=== PATIENT | female | born 1970 | race Caucasian/White ===

== ENCOUNTER 2017-12-12 19:28 | Emergency (ER) | payer OTHER ==
[~2017-12-12] VITALS: Ht 165.1 cm; Wt 74.8 kg
== END 2017-12-12 21:51 | disposition home or self-care (01) ==
LOC: ER 19:28
DX: J06.9 Acute upper respiratory infection, unspecified (principal); J01.00 Acute maxillary sinusitis, unspecified; J11.1 Influenza due to unidentified influenza virus with other respiratory manifestations

== ENCOUNTER → 2018-01-21 | Emergency (ER) | payer OTHER ==
[~2018-01-21] VITALS: Ht 170.2 cm; Wt 63.5 kg
== END | disposition home or self-care (01) ==
LOC: ER 18:29
DX: J11.1 Influenza due to unidentified influenza virus with other respiratory manifestations (principal); J22 Unspecified acute lower respiratory infection